=== PATIENT | female | born 1985 | race Caucasian/White ===

== ENCOUNTER 2016-09-12 03:50 | Inpatient (IN) | payer OTHER ==
[2016-09-12] MEDS ORDERED: BISACODYL 10 MG SUPP.RECT RC PRN (04:49)
[2016-09-12] MEDS ORDERED: BENZOCAINE 20% 57 GM BOTTLE TP PRN (04:49)
[2016-09-12] MEDS ORDERED: BENZOCAINE 28 GM HEMORRHOIDAL OINTMENT TP PRN (04:49)
[2016-09-12] MEDS ORDERED: METHYLERGONOVINE MALEATE 0.2 MG/1 ML AMP IM PRN (04:49)
[2016-09-12] MEDS ORDERED: WITCH HAZEL 50% (TUCKS) 40 PAD/JAR PAD TP PRN (04:49)
[2016-09-12] MEDS ORDERED: ACETAMINOPHEN 325 MG TABLET (FP) PO PRN (04:49)
--- NOTE | 2016-09-12 04:56 | HP ---
Past Medical History - Admission Chief Complaint: Labor pain History of Present Illness: 30 yo @ 38 weeks gestation, presents c/o Labor pain. EDC 09/22/16 Upon arriving to L&D, patient was ready to deliver. History Source: Patient Limitations to Obtaining History: No Limitations - Past Medical History ...: 4 ...Para: 4 ...EDC by Rose: 09/22/16 - Past Surgical History Past Surgical History: Yes: None Hx Myomectomy: No Hx Transabdominal Cerclage: No - Smoking History Smoking history: Never smoked - Alcohol/Substance Use Hx Alcohol Use: No History of Substance Use: reports: None - Social History Usual Living Arrangement: Yes: With Significant Other History of Recent Travel: No Home Medications - Allergies Allergies/Adverse Reactions: Allergies Allergy/AdvReac Type Severity Reaction Status Date / Time No Known Allergies Allergy Verified 06/25/15 08:38 - Home Medications Home Medications: Ambulatory Orders NK [No Known Home Medication] 05/20/15 Family Disease History - Family Disease History Family History: Unremarkable Review of Systems - Review of Systems Constitutional: reports: No Symptoms Eyes: reports: No Symptoms HENT: reports: No Symptoms Neck: reports: No Symptoms Cardiovascular: reports: No Symptoms Respiratory: reports: No Symptoms Gastrointestinal: reports: No Symptoms Genitourinary: reports: Pain Breasts: reports: No Symptoms Reported Musculoskeletal: reports: No Symptoms Integumentary: reports: No Symptoms Neurological: reports: No Symptoms Endocrine: reports: No Symptoms Hematology/Lymphatic: reports: No Symptoms Psychiatric: reports: No Symptoms Pain Intensity: 9 Physical Exam - Maternity Constitutional: Yes: Well Nourished Eyes: Yes: Conjunctiva Clear HENT: Yes: Atraumatic Neck: Yes: Supple, Trachea Midline Cardiovascular: Yes: Regular Rate and Rhythm Lungs: Clear to auscultation - Abdominal Exam/OB Number of Fetuses: Single Presentation: Vertex - Vaginal Exam/OB Vaginal Bleediing: No Dilatation (cm): Fully - Physical Exam ...Motor Strength: WNL Psychiatric: Yes: Alert, Oriented Assessment/Plan Active labor Admit to L&D Anticipate
--- NOTE | 2016-09-12 04:58 | PN ---
Delivery - Delivery Vaginal Delivery: Spontaneous Episiotomy/Laceration: None EBL (cc): 300 Remarks - Remarks Remarks: Normal spontaneous vaginal delivery of a live infant girl over intact perineum. Nose / Oropharynx suctioned @ perineum. Cord clamped and cut Placenta expelled spontaneously intact. Mother in stable condition.
[2016-09-12] MEDS ORDERED: D5W-LR W/ 20 UNITS OXYTOCIN 1,000 ML IV SCH (05:00)
[2016-09-12] MEDS ORDERED: DEXTROSE 5%-LACTATED RINGERS 1,000 ML IV SCH (05:00)
[2016-09-12] MEDS: IBUPROFEN 600 MG TABLET (FP) PO PRN ×3 (05:10→15:06)
[2016-09-12 05:45] VITALS: BMI 32.3
[2016-09-12 06:19] LABS: BASOPHIL 0.6 % (0-2.0); MCH 22.8 pg (25.7-33.7); MCHC 31.2 g/dl (32.0-36.0); MEAN PLT VOLUME 8.3 fl (7.5-11.1); PLATELET COUNT 195 K/MM3 (134-434); RDW 17.4 % (11.6-15.6); WHITE BLOOD COUNT 10.3 K/mm3 (4.0-10.0)
[2016-09-12 06:42] LABS: INR 0.95 (0.82-1.09); PROTHROMBIN TIME (PATIENT) 10.4 SEC (9.98-11.88)
[2016-09-12 06:43] LABS: ALBUMIN 2.3 g/dl (3.4-5.0); ANION GAP 12 (8-16); BILIRUBIN,TOTAL 0.4 mg/dL (0.2-1.0); CALCIUM 7.9 mg/dL (8.5-10.1); CO2 22 mmol/L (21-32); COCKROFT - GAULT 237.7535; CREATININE 0.5 mg/dL (0.55-1.02); GLUCOSE,RANDOM 91 mg/dL (74-106); SGOT/AST 17 U/L (15-37); SGPT/ALT 10 U/L (12-78)
[2016-09-12 06:44] LABS: ACTIVATED PTT 23.4 SECONDS (26.9-34.4)
[2016-09-12 06:44] LABS: ALK PHOS 155 U/L (45-117)
[2016-09-12] MEDS: FERROUS SO4 325 MG TABLET (FP) PO SCH ×3 (08:40→17:16)
[2016-09-12 09:20] LABS: HIV 1 & 2 AB NEGATIVE; HIV 1 AGp24 NEGATIVE
[2016-09-12] MEDS: PRENATAL VITAMINS W/ FOLIC ACID TABLET (FP) PO SCH (09:36)
[2016-09-12] MEDS ORDERED: TUBERCULIN PPD 5 TU/0.1ML SYRINGE (IN PATIENT USE ONLY) ID ONE (14:00)
[2016-09-13] MEDS: IBUPROFEN 600 MG TABLET (FP) PO PRN ×2 (07:01→22:14)
--- NOTE | 2016-09-13 07:49 | PN ---
Post Note - Post Date of Delivery: 09/12/16 Post Day: 1 Vital Signs: Vital Signs - 24 hr 09/12/16 09/12/16 09/12/16 10:00 13:59 17:51 Temperature 98.7 F 98.1 F 98.7 F Pulse Rate 92 H 72 70 Respiratory 18 18 18 Rate Blood Pressure 118/63 96/50 117/76 09/12/16 09/13/16 22:00 02:00 Temperature 98.2 F 98.4 F Pulse Rate 74 94 H Respiratory 18 18 Rate Blood Pressure 96/58 94/54 Labs: Laboratory Results - last 24 hr 09/12/16 09/12/16 09/12/16 05:45 05:45 05:45 RPR Titer Nonreactive Hep Bs Antigen Negative HIV 1&2 Antibody Screen Negative HIV P24 Antigen Negative - Objective Afebrile: Yes Breast: Not engorged Abdomen: Soft, Non-tender Uterus: Fundus firm, Non-tender Vagina: Scant lochia Extremities: Non-tender - Assessment/Plan (1) Status post vaginal delivery Assessment: S/P Normal Plan: Routine Care
[2016-09-13] MEDS: FERROUS SO4 325 MG TABLET (FP) PO SCH ×3 (08:06→16:57)
[2016-09-13 08:36] LABS: BASOPHIL 0.7 % (0-2.0); EOSINOPHIL 2.4 % (0-4.5); MCH 22.8 pg (25.7-33.7); MCHC 31.4 g/dl (32.0-36.0); MEAN CELL VOLUME 72.4 fl (80-96); MEAN PLT VOLUME 8.3 fl (7.5-11.1); NEUTROPHILS 67.7 % (42.8-82.8); PLATELET COUNT 152 K/MM3 (134-434); RDW 17.4 % (11.6-15.6); WHITE BLOOD COUNT 8.9 K/mm3 (4.0-10.0)
[2016-09-13] MEDS: PRENATAL VITAMINS W/ FOLIC ACID TABLET (FP) PO SCH (10:12)
[2016-09-13] MEDS ORDERED: DIPHTH,PERTUSS(ACELL),TET 0.5 ML DISP.SYRIN IM ONE (12:00)
[2016-09-13] MEDS ORDERED: SENNOSIDES/DOCUSATE COMBO (SENNA PLUS) TABLET (UD) PO PRN (22:00)
[2016-09-14] MEDS: FERROUS SO4 325 MG TABLET (FP) PO SCH ×2 (07:27→12:29)
[2016-09-14 08:51] VITALS: TEMP 97.7
[2016-09-14] MEDS: PRENATAL VITAMINS W/ FOLIC ACID TABLET (FP) PO SCH (09:15)
--- NOTE | 2016-09-14 09:19 | DS ---
Physical Exam-EXTERMINATION INSPECTOR Vital Signs: Vital Signs Temperature 97.7 F 09/14/16 08:49 Pulse Rate 68 09/14/16 08:49 Respiratory Rate 20 09/14/16 08:49 Blood Pressure 104/61 09/14/16 08:49 O2 Sat by Pulse Oximetry (%) 100 09/12/16 04:45 Constitutional: Yes: Well Nourished, No Distress, Calm Eyes: Yes: Conjunctiva Clear, EOM Intact HENT: Yes: Atraumatic, Normocephalic Neck: Yes: Supple, Trachea Midline Cardiovascular: Yes: Regular Rate and Rhythm Respiratory: Yes: Regular, CTA Bilaterally Gastrointestinal: Yes: Normal Bowel Sounds, Soft ....Post : Yes: Uterus firm, Uterus non-tender Psychiatric: Yes: Alert, Oriented Labs: CBC, BMP 09/13/16 08:00 09/12/16 05:45 Delivery - Delivery Vaginal Delivery: Spontaneous Type of Anesthesia: None Episiotomy/Laceration: None EBL (cc): 300 Delivery, Single - Stages of Labor Date 1st Stage Initiatied: 09/12/16 Time 1st Stage Initiated: 01:00 Date 2nd Stage Initiated: 09/12/16 Time 2nd Stage Initiated: 03:51 Date of Delivery: 09/12/16 Time of Delivery: 03:54 Time Placenta Delivered: 04:00 Placenta: Yes: Spontaneous - Condition of Statistics Teacher/Circuit Breaker Mechanic Present: No Gender: Female Weight: 7 lb 2 oz Position: Left, OT Total Hours ROM (Hrs/Mins): 30 MINS - 1 Minute Total Score: 9 5 Minutes Total Score: 9 - Feeding Plan Initial Plan: Exclusive throughout hospitalization Discharge Summary Reason For Visit: LABOR ADMIT Procedures: Principal: Normal Condition: Good - Instructions Diet, Activity, Other Instructions: Physical activity Resume your normal everyday activity as tolerated but no heavy lifting or strenuous exercise until seen by your doctor. You may walk unlimited amounts and climb stairs. You may resume driving the car when you feel safe and comfortable behind the wheel. No sexual activity as instructed for 6 weeks. You may shower, no soaking in pools or baths for 6 weeks. Diet There are no dietary restrictions. Eat healthy, high-fiber foods. Drink 6 to 8 glasses of liquid each day. This will assist in keeping your bowels are regular. Pain management You may take Tylenol or Ibuprofen (for example, Motrin, Advil etc.) over the counter for pain. You may take up to 600mg of Ibuprofen every 6 hours. DO NOT exceed 2400mg of ibuprofen in a 24 hour period. Call MD for any of the following: Severe pain not relieved by medication Fever of 101 or higher Excessive bleeding or drainage on dressing Inability to urinate Regular diet No sexual intercourse x 6 weeks F/U with MD in 6 weeks Referrals: Julia Infante MD [Staff Physician] - Disposition: HOME - Home Medications Comprehensive Discharge Medication List: Ambulatory Orders Vit/Iron Fumarate/FA [ Tablet] 1 tab PO DAILY 09/12/16 Synthroid 25 tab PO DAILY 09/12/16
--- NOTE | 2016-09-14 09:37 | PN ---
Post Progress Note - Subjective Subjective: pt seen and evaluated. Doing well. Pain controlled, tolerating diet, voiding, passing flatus. Scant to moderate lochia rubra but stable and decreasing. NO CP/SOB/F/C/PARKS or any other complaints. Type of Delivery: Vital Signs: Vital Signs Temperature 97.7 F 09/14/16 08:49 Pulse Rate 68 09/14/16 08:49 Respiratory Rate 20 09/14/16 08:49 Blood Pressure 104/61 09/14/16 08:49 O2 Sat by Pulse Oximetry (%) 100 09/12/16 04:45 Uterus: Yes: Fundus Firm, Fundus below umbilicus Abdomen/GI: Yes: Abdomen soft, Passing flatus. No: Tender Lochia: Yes: Rubra Lochia, amount: Small Extremities: Yes: Calves non-tender Perineum: Yes: Intact Activity: Ambulating - Labs Labs: CBC WBC 8.9 K/mm3 (4.0-10.0) 09/13/16 08:00 RBC 3.84 M/mm3 (3.60-5.2) 09/13/16 08:00 Hgb 8.7 GM/dL (10.7-15.3) L 09/13/16 08:00 Hct 27.8 % (32.4-45.2) L 09/13/16 08:00 MCV 72.4 fl (80-96) L 09/13/16 08:00 MCHC 31.4 g/dl (32.0-36.0) L 09/13/16 08:00 RDW 17.4 % (11.6-15.6) H 09/13/16 08:00 Plt Count 152 K/MM3 (134-434) D 09/13/16 08:00 MPV 8.3 fl (7.5-11.1) 09/13/16 08:00 Neutrophils % 67.7 % (42.8-82.8) 09/13/16 08:00 Lymphocytes % 22.1 % (8-40) D 09/13/16 08:00 Monocytes % 7.1 % (3.8-10.2) 09/13/16 08:00 Eosinophils % 2.4 % (0-4.5) D 09/13/16 08:00 Basophils % 0.7 % (0-2.0) 09/13/16 08:00 Problem List - Problems (1) Status post vaginal delivery Code(s): WOH4312 - (2) Anemia Code(s): D64.9 - ANEMIA, UNSPECIFIED Assessment/Plan 30 y/o PPD#2 s/p normal - AFVSS - Anemia post delivery with Hgb 8.7. Will send Rx for PO Iron - regular diet, PO pain meds, routine care - stable for discharge home today
[2016-09-14 12:31] LABS: BASOPHIL 0.8 % (0-2.0); EOSINOPHIL 3.3 % (0-4.5); MCH 22.9 pg (25.7-33.7); MCHC 31.1 g/dl (32.0-36.0); MEAN CELL VOLUME 73.6 fl (80-96); MEAN PLT VOLUME 7.9 fl (7.5-11.1); NEUTROPHILS 72.3 % (42.8-82.8); PLATELET COUNT 185 K/MM3 (134-434); RDW 17.2 % (11.6-15.6); WHITE BLOOD COUNT 9.3 K/mm3 (4.0-10.0)
[2016-09-14 13:44] VITALS: BP 104/67; PULSE 87
== END 2016-09-14 14:00 | disposition home or self-care (01) | DRG 560 ==
LOC: JLDR 03:50 → J3W 06:05
PROVIDERS: ADMIT Obstetrics & Gynecology; ATTEND Obstetrics & Gynecology
PROC: 10E0XZZ Delivery of Products of Conception, External Approach (ICD-10-PCS; principal; 2016-09-12)
DX: O99.02 Anemia complicating childbirth (principal); Z3A.38 38 weeks gestation of pregnancy; Z37.0 Single live birth
CPT/HCPCS: 36415; 59409; 80053; 85025; 85610; 85730; 86593; 86762; 86850; 86900; 86901; 87340; 87389; 90715